=== PATIENT | male | born 1940 | race Caucasian/White ===

== ENCOUNTER → 2018-03-09 | Outpatient (CLI) | payer MEDICARE ==
--- NOTE | 2018-03-09 16:43 | RADIOLOGY IMAGING REPORT ---
FACILITY: [facility] [place] PATIENT NAME: Oracio Ulloa : 1940 MR: [id number] V: [id number] EXAM DATE: ORDERING PHYSICIAN: RIGO MCMULLEN TECHNOLOGIST: Location: [facility] Patient: Oracio Ulloa : 1940 Visit/Account:[id number] Date of Sevice: 03/09/2018 CHEST PA AND LAT COMPARISONS: None. ADDITIONAL PERTINENT HISTORY: Shortness of breath with chest tightness. FINDINGS: Cardiomediastinal silhouette: Negative. Pulmonary vasculature: Mild atherosclerotic disease of the thoracic aortic arch. Otherwise negative Lung domínguez: Minimal background interstitial scarring with hyperexpanded lung domínguez. Otherwise neg ative Pleural spaces: Negative. Osseous structures: Negative. Surrounding soft tissues: Negative. IMPRESSION: 1. Hyperexpanded lung domínguez with background interstitial scarring. 2. No acute cardiopulmonary disease. Report Dictated By: Stevo Lozada MD at 03/09/2018 4:38 PM Report E-Signed By: Stevo Lozada MD at 03/09/2018 4:39 PM WSN:[id number]
== END ==
LOC: RAD 14:36
PROVIDERS: ATTEND Family Medicine
DX: J84.10 Pulmonary fibrosis, unspecified (principal); J98.4 Other disorders of lung
CPT/HCPCS: 71046

== ENCOUNTER → 2018-08-13 | Outpatient (CLI) | payer OTHER ==
--- NOTE | 2018-08-13 13:33 | RADIOLOGY IMAGING REPORT ---
FACILITY: [facility] PATIENT NAME: Oracio Ulloa : 1940 MR: [id number] V: [id number] EXAM DATE: ORDERING PHYSICIAN: RIGO MCMULLEN TECHNOLOGIST: Location: [facility] [place] Patient: Oracio Ulloa : 1940 Visit/Account:[id number] Date of Sevice: 08/13/2018 Exam type: ACUTE ABDOMEN SERIES 3 VIEW History: Abdominal tenderness Comparison: Two view chest March 09, 2018. Findings: The lungs are free of acute effusions, infiltrates or edema. The cardiac silhouette is normal in siz e. Supine and upright views of the abdomen demonstrate a nonspecific bowel gas pattern. There is no nikki dence of free air beneath hemidiaphragms. Calcifications project over both renal shadows. These cou ld be related to urolithiasis although the differential diagnosis would include other superimposed in tra-abdominal calcifications. There are postsurgical changes of the lower lumbar spine. Surgical cl ips are present right upper quadrant of abdomen. IMPRESSION: 1. No evidence of acute pulmonary consolidation Nonspecific bowel gas pattern Calcifications project over both renal shadows. These could be related to urolithiasis although the differential diagnosis would include other superimposed intra-abdominal calcifications Report Dictated By: Zara Powell MD at 08/13/2018 1:27 PM Report E-Signed By: Zara Powell MD at 08/13/2018 1:30 PM WSN:[email or web address]
== END ==
LOC: RAD 11:33
PROVIDERS: ATTEND Family Medicine
DX: R10.817 Generalized abdominal tenderness (principal)
CPT/HCPCS: 74022

== ENCOUNTER → 2018-08-24 | Outpatient (CLI) | payer OTHER ==
--- NOTE | 2018-08-24 14:43 | RADIOLOGY IMAGING REPORT ---
FACILITY: [facility] PATIENT NAME: Oracio Ulloa : 1940 MR: [id number] V: [id number] EXAM DATE: ORDERING PHYSICIAN: RIGO MCMULLEN TECHNOLOGIST: Location: [facility] [place] Patient: Oracio Ulloa : 1940 Visit/Account:[id number] Date of Sevice: 08/24/2018 EXAMINATION: Lumbar spine, 3 views 08/24/2018 11:07 AM HISTORY: Lower back pain. History of multiple surgeries, most recently in 2008. COMPARISON: Acute abdominal series 08/13/2018 FINDINGS: 5 nonrib-bearing lumbar vertebral levels. Status post L4 and L5 laminectomies with fusion from L3 through S1. Metallic fixation is intact. L2-3 spondylosis with disc height loss and spurri ng. No acute-appearing bony finding. Atherosclerotic vascular calcifications. Right upper quadrant cholecystectomy clips. IMPRESSION: 1. Status post anterior and posterior fusion from L3 through S1 with lower lumbar laminectomy. 2. L2-3 spondylosis but no acute bony finding. Report Dictated By: Sami Khan MD at 08/24/2018 2:36 PM Report E-Signed By: Sami Khan MD at 08/24/2018 2:38 PM WSN:[email or web address]
== END ==
LOC: RAD 11:00
PROVIDERS: ATTEND Family Medicine
DX: M47.897 Other spondylosis, lumbosacral region (principal); Z98.890 Other specified postprocedural states
CPT/HCPCS: 72100

== ENCOUNTER → 2018-09-01 | Outpatient (CLI) | payer OTHER | LOC: MRI 01:26 | PROVIDERS: ATTEND Family Medicine | DX: Z02.9 Encounter for administrative examinations, unspecified (principal) ==

== ENCOUNTER → 2018-09-07 | Outpatient (CLI) | payer OTHER ==
[~2018-09-07] MED LIST: GADOBENATE 529MG/1ML 15ML VIAL IVP ONE
--- NOTE | 2018-09-07 13:45 | RADIOLOGY IMAGING REPORT ---
FACILITY: [facility] PATIENT NAME: Oracio Ulloa : 1940 MR: [id number] V: [id number] EXAM DATE: ORDERING PHYSICIAN: RIGO MCMULLEN TECHNOLOGIST: Location: [facility] [place] Patient: Oracio Ulloa : 1940 Visit/Account:[id number] Date of Sevice: 09/07/2018 L SPINE W W/O CONTRAST COMPARISON: None Additional pertinent history: Low back pain and right leg pain Technique: Multiplanar multisequence lumbar spine MRI was performed with and without gadolinium enhan cement. Contrast: 13 ml of MultiHance FINDINGS: Postoperative changes: Patient status post previous anterior interbody fusion of L3-S1. Previous bila teral laminectomies at L3-L4 and L4-L5 and L5-S1. Vertebral body heights and alignment: Negative. Vertebral marrow signal: Type one degenerative endplate changes at L2-L3. Distal thoracic cord and conus: Negative. The conus ends at T12-L1. Surrounding soft tissues: Negative. Inspection of the disc spaces reveal the following: L5-S1: Postoperative changes without significant disc bulge or disc protrusion. No significant canal or neural foraminal narrowing. L4-L5: Postoperative changes with circumferential disc bulging. Facet hypertrophic changes. No signif icant canal or neural foraminal narrowing. L3-L4: Postoperative changes without significant disc bulge or disc protrusion. No significant canal or neural foraminal narrowing. L2-L3: Posterior broad-based disc protrusion with ligamentum flavum and facet overgrowth. Severe dalton l stenosis and mild bilateral neural foraminal narrowing. L1-L2: Circumferential disc bulging without significant canal or neural foraminal narrowing. T12-L1: Negative. Pathologic enhancement: Negative. IMPRESSION: 1. Postoperative and spondylitic change as discussed above. 2. Findings felt to be potentially most significant at L2-L3 with mild bilateral neural foraminal vishal rowing and severe canal stenosis. Report Dictated By: Stevo Lozada MD at 09/07/2018 1:27 PM Report E-Signed By: Stevo Lozada MD at 09/07/2018 1:34 PM WSN:[email or web address]
== END ==
LOC: MRI 01:43
PROVIDERS: ATTEND Family Medicine
DX: M47.896 Other spondylosis, lumbar region (principal); M48.061 Spinal stenosis, lumbar region without neurogenic claudication
CPT/HCPCS: 72158; A9577